=== PATIENT | male | born 1950 | race Caucasian/White ===

== ENCOUNTER 2017-10-18 08:58 | Inpatient (IN) | payer OTHER, MEDICARE ==
--- NOTE | 2017-10-18 09:26 | PDOC ---
History of Present Illness - General History Source: Patient Exam Limitations: No Limitations <Sandrine Sorto - Last Filed: 10/18/17 11:48> - History of Present Illness Initial Comments: 10/18/17 09:38 The patient is a 67 year old male with history of hypertension, CAD s/p stent, renal colic s/p lithotripsy, who presents to the ED complaining of several days of right flank pain. He describes his right flank pain as sharp, waxing and waning, and now migrating to the RLQ. He also describes nausea with nonbloody nonbilious vomiting yesterday. He has been taking Ibuprofen with moderate relief. Last took Ibuprofen 6:00 AM today. The patient denies fever or chills. He denies hematuria or dysuria. He denies constipation or diarrhea. He denies trauma or heavy lifting. Patient states his current pain is 2/10 and declines pain medication at this time. PCP: Dr. Lara Urologist: Dr. Franki Lamb <Massiel Mancuso - Last Filed: 10/18/17 11:55> - General Chief Complaint: Pain, Acute Stated Complaint: BACK PAIN (KIDNEY) Time Seen by Provider: 10/18/17 09:25 Past History - Past Medical History Cardiac Disorders: Yes COPD: No Diabetes: Yes Disorders: (KIDNEY STONES.) HTN: Yes - Surgical History Cardiac Surgery: Yes (STENT: 2014) - Suicide/Smoking/Psychosocial Hx Smoking History: Never smoked Hx Alcohol Use: No Drug/Substance Use Hx: No Substance Use Type: None <Sandrine Sorto - Last Filed: 10/18/17 11:48> <Massiel Mancuso - Last Filed: 10/18/17 11:55> - Past Medical History Allergies/Adverse Reactions: Allergies Allergy/AdvReac Type Severity Reaction Status Date / Time No Known Allergies Allergy Verified 10/18/17 09:07 Home Medications: Ambulatory Orders Amlodipine Besylate [Norvasc -] 5 mg PO DAILY 10/18/17 Carvedilol [Coreg -] 25 mg PO BID 10/18/17 Clopidogrel Bisulfate [Plavix] 75 mg PO DAILY 10/18/17 Glyburide [Diabeta -] 2 mg PO DAILY 10/18/17 Losartan/Hydrochlorothiazide [Losartan-Hctz 100-12.5 mg Tab] 1 each PO DAILY Metformin HCl [Glucophage] 1,000 mg PO BID 10/18/17 Review of Systems - Review of Systems Able to Perform ROS?: Yes Comments:: 10/18/17 09:57 GENERAL/CONSTITUTIONAL: No: fever, chills, weakness, loss of appetite. HEAD, EYES, EARS, NOSE AND THROAT: No: change in vision, ear pain, discharge, sore throat, throat swelling. CARDIOVASCULAR: No: chest pain, lightheadedness, palpitations, syncope RESPIRATORY: No: cough, shortness of breath, wheezing, hemoptysis, stridor. GASTROINTESTINAL: Present: nausea, NBNB vomiting No: abdominal cramping, diarrhea, rectal bleeding, constipation. GENITOURINARY: Present: right flank pain No: dysuria, hematuria, frequency, urgency MUSCULOSKELETAL: No: back pain, neck pain, joint pain, muscle swelling or pain SKIN AND BREASTS: No: lesions, pallor, rash or easy bruising. NEUROLOGIC: No: headache, vertigo, paresthesias, weakness ENDOCRINE: No: unexplained weight gain or loss HEMATOLOGIC/LYMPHATIC: No: anemia, easy bleeding, swelling nodes <Massiel Mancuso - Last Filed: 10/18/17 11:55> *Physical Exam - Vital Signs Last Vital Signs Temp Pulse Resp BP Pulse Ox 97.7 F 89 18 130/74 99 10/18/17 09:05 10/18/17 09:05 10/18/17 09:05 10/18/17 09:05 10/18/17 09:05 <Sandrine Sorto - Last Filed: 10/18/17 11:48> - Vital Signs Last Vital Signs Temp Pulse Resp BP Pulse Ox 97.7 F 89 18 130/74 99 10/18/17 09:05 10/18/17 09:05 10/18/17 09:05 10/18/17 09:05 10/18/17 09:05 - Physical Exam Comments: 10/18/17 10:00 GENERAL: The patient is in no acute distress. HEAD: Normal with no signs of trauma. EYES: PERRLA, EOMI, sclera anicteric, conjunctiva clear. ENT: Ears normal, nares patent, oropharynx clear without exudates. Moist mucous membranes. NECK: Normal range of motion, supple without lymphadenopathy, JVD, or masses. LUNGS: Breath sounds equal, clear to auscultation bilaterally. No wheezes, and no crackles. HEART:Regular rate and rhythm, normal S1 and S2 without murmur, rub or gallop. ABDOMEN: Soft, nontender, normoactive bowel sounds. No guarding, no rebound. EXTREMITIES: Normal range of motion, no edema. No clubbing or cyanosis. No erythema, or tenderness. NEUROLOGICAL: Cranial nerves II through XII grossly intact. Normal speech. No focal neurological deficits. MUSCULOSKELETAL: Back non-tender to palpation, no CVA tenderness SKIN: Warm, Dry, normal turgor, no rashes or lesions noted. <Massiel Mancuso - Last Filed: 10/18/17 11:55> ED Treatment Course - LABORATORY CBC & Chemistry Diagram: 10/18/17 09:46 10/18/17 09:46 <Sandrine Sorto - Last Filed: 10/18/17 11:48> - LABORATORY CBC & Chemistry Diagram: 10/18/17 09:46 10/18/17 09:46 <Massiel Mancuso - Last Filed: 10/18/17 11:55> Medical Decision Making - Medical Decision Making 10/18/17 11:29 Mr. Dacosta is a 67-year-old male with a history of diabetes, hypertension, history of prior kidney stone requiring lithotripsy. Patient presents emergency department with a complaint of right flank pain which has not improved over the past few days. No fevers, chills. No hematuria, no dysuria. Patient denies heavy lifting, falls, direct trauma. Emergency diagnosis includes but is not limited to: Nephrolithiasis, pyelonephritis, musculoskeletal pain, renal infarct. Will do: Labs UA Spiral CT Patient states his pain is minimal now after having taking Motrin at home. 10/18/17 11:31 Laboratory Tests 10/18/17 10/18/17 10/18/17 09:46 09:46 09:46 WBC 9.5 Hgb 13.7 Hct 38.5 Plt Count 179 Sodium 136 Potassium 4.1 Chloride 100 Carbon Dioxide 23 Anion Gap 13 Creatinine 1.5 H Random Glucose 293 H Urine Blood 2+ H Urine Nitrite Negative Ur Leukocyte Esterase Negative CT of the abdomen and pelvis: Possibly 0.8 x 0.6 cm calculus within the right UPJ with mild right hydronephrosis, and distention of the renal pelvis. Associated left. Renal fat stranding and edema. No hydroureter. 10/18/17 11:[address] Lamb Recommends admission Will do lithotrypsy tomorrow Will contact Hospitalists Clinical Impression: Obstructing kidney stone, initial presentation <Sandrine Sorto - Last Filed: 10/18/17 11:48> - Medical Decision Making 10/18/17 11:[address], reviewed and interpreted by Dr. Barron Impression: Approximately 0.8 x 0.6 cm calculus within the right uteropelvic junction with mild right hydronephrosis and distention of the renal pelvis. 4 mm nonobstructing right nephrolithiasis. 2. Circumferentially prominent urinary bladder wall may be due to underdistention, however, cystitis is not excluded. Please correlate clinically , with urinalysis. 3. Hepatic steatosis. 10/18/17 11:48 Case discussed with patient's urologist, Dr. rFanki Lamb, who requested admission. <Massiel Mancuso - Last Filed: 10/18/17 11:55> *DC/Admit/Observation/Transfer - Discharge Dispostion Admit: Yes <Sandrine Sorto - Last Filed: 10/18/17 11:48> - Attestations Scribe Attestion: 10/18/17 10:00 Documentation prepared by Massiel Mancuso, acting as medical staff manager for Sandrine Sorto MD. <Massiel Mancuso - Last Filed: 10/18/17 11:55> Diagnosis at time of Disposition: Urinary tract obstruction by kidney stone - Discharge Dispostion Condition at time of disposition: Stable
[2017-10-18] MEDS ORDERED: SODIUM CHLORIDE 1,000 ML IV STA (09:35)
[2017-10-18 10:12] LABS: BASO % 0.3 % (0-2.0); EOS % 0.8 % (0-4.5); HEMATOCRIT 38.5 % (35.4-49); HEMOGLOBIN 13.7 GM/dL (11.7-16.9); LYMPH % 13.9 % (8-40); MCHC 35.6 g/dl (32.0-35.9); MEAN CELL VOLUME 87.1 fl (80-96); MEAN PLT VOLUME 7.5 fl (7.5-11.1); MONO % 8.7 % (3.8-10.2); NEUT % 76.3 % (42.8-82.8); PLATELET COUNT 179 K/MM3 (134-434); RBC 4.42 M/mm3 (4.00-5.60); RDW 13.6 % (11.9-15.9); WHITE BLOOD COUNT 9.5 K/mm3 (4.0-10.0)
[2017-10-18 10:22] LABS: URINE APPEARANCE CLOUDY; URINE BILIRUBIN NEGATIVE (NEGATIVE); URINE BLOOD 2+ (NEGATIVE); URINE COLOR YELLOW; URINE GLUCOSE (UA) 2+ (NEGATIVE); URINE KETONE TRACE (NEGATIVE); URINE LEUK ESTERASE NEGATIVE (NEGATIVE); URINE NITRITE NEGATIVE (NEGATIVE); URINE UROBILINOGEN NEGATIVE mg/dL (0.2-1.0)
[2017-10-18 10:29] LABS: URINE PROTEIN 3+ (NEGATIVE)
[2017-10-18 10:43] LABS: ALBUMIN 3.4 g/dl (3.4-5.0); ALK PHOS 57 U/L (45-117); ANION GAP 13 (8-16); BILIRUBIN,TOTAL 1.3 mg/dL (0.2-1.0); BLOOD UREA NITROGEN 28 mg/dL (7-18); CALCIUM 8.7 mg/dL (8.5-10.1); CHLORIDE 100 mmol/L (98-107); CO2 23 mmol/L (21-32); CREATININE 1.5 mg/dL (0.7-1.3); GLUCOSE,RANDOM 293 mg/dL (74-106); POTASSIUM 4.1 mmol/L (3.5-5.1); SGOT/AST 16 U/L (15-37); SGPT/ALT 16 U/L (12-78); SODIUM 136 mmol/L (136-145); TOT PROT 6.4 g/dl (6.4-8.2)
[2017-10-18 11:28] LABS: EPI CELLS RARE /HPF (FEW); URIC ACID CRYSTALS MANY /hpf (NONE SEEN); URINE MUCUS RARE
--- NOTE | 2017-10-18 12:07 | HP ---
CHIEF COMPLAINT: "I have a kidney stone" PCP: Dr. Lara Urologist: Dr. Franki Lamb HISTORY OF PRESENT ILLNESS: This is a 67 yo M with PMH of L nephrolithiasis s/p lithotripsy 5 yrs ago, CAD s /p stent 4 yrs ago, HTN and NIDDM, who presents due to worsening right flank pain x several weeks. Pain is currently resolves but otherwise it comes and goes , is sharp and radiating to RLQ, 3/10 most severe. Pain is relieved by Ibuprofen (took 2-400 mg yesterday and one today with symptomatic relief). Last night he experienced 1 episode of nbnb vomiting. He denies history of elevated createnine or bilirubin. A1c 8 mo ago was 6. His last TTE and stress test were 2 yrs ago and were WNL. He denies f/c, abd pain, nausea, dysuria, hematuria, prior UTI, weight change, CP, sob, trauma. ER course was notable for: (1)labs (2)abd/pelvis CT (3)IVF Recent Travel: denies PAST MEDICAL HISTORY: as above PAST SURGICAL HISTORY: as above Social History: lives with Smoking: denies Alcohol:denies Drugs: denies Family History: no history of nephrolithiasis. father [place] at 65 yo Allergies No Known Allergies Allergy (Verified 10/18/17 09:07) HOME MEDICATIONS: Home Medications Medication Instructions Recorded Amlodipine Besylate [Norvasc -] 5 mg PO DAILY 10/18/17 Carvedilol [Coreg -] 25 mg PO BID 10/18/17 Clopidogrel Bisulfate [Plavix] 75 mg PO DAILY 10/18/17 Glyburide [Diabeta -] 2 mg PO DAILY 10/18/17 Losartan/Hydrochlorothiazide 1 each PO DAILY 10/18/17 [Losartan-Hctz 100-12.5 mg Tab] Metformin HCl [Glucophage] 1,000 mg PO BID 10/18/17 REVIEW OF SYSTEMS CONSTITUTIONAL: Absent: fever, chills, diaphoresis, generalized weakness, malaise, loss of appetite, weight change HEENT: Absent: rhinorrhea, nasal congestion, throat pain, CARDIOVASCULAR: Absent: chest pain, syncope, palpitations RESPIRATORY: Absent: cough, shortness of breath GASTROINTESTINAL: Absent: abdominal distension, diarrhea, constipation GENITOURINARY: Absent: dysuria, hematuria MUSCULOSKELETAL: Absent: myalgia, arthralgia SKIN: Absent: rash, itching, pallor HEMATOLOGIC/IMMUNOLOGIC: Absent: easy bleeding, easy bruising ENDOCRINE: Absent: unexplained weight gain, unexplained weight loss NEUROLOGIC: Absent: headache, focal weakness or paresthesias PSYCHIATRIC: Absent: anxiety, depression PHYSICAL EXAMINATION Vital Signs - 24 hr 10/18/17 09:05 Temperature 97.7 F Pulse Rate 89 Respiratory 18 Rate Blood Pressure 130/74 O2 Sat by Pulse 99 Oximetry (%) GENERAL: Awake, alert, and fully oriented, in no acute distress. HEAD: Normal with no signs of trauma. EYES: Pupils equal, round and reactive to light, extraocular movements intact, sclera anicteric, conjunctiva clear. No lid lag. EARS, NOSE, THROAT: Moist mucous membranes. NECK: supple without JVD LUNGS: Breath sounds equal, clear to auscultation bilaterally. HEART: distant heart sounds, Regular rate and rhythm, normal S1 and S2 ABDOMEN: obese, Soft, mildly tender to deep palpation ruq, mildly distended, normoactive bowel sounds, no guarding, no rebound, no masses. MUSCULOSKELETAL: No CVA tenderness. UPPER EXTREMITIES: 2+ pulses, warm, well-perfused. No cyanosis. No clubbing. No peripheral edema. LOWER EXTREMITIES: 2+ pulses, warm, well-perfused. No calf tenderness. No peripheral edema. NEUROLOGICAL: Cranial nerves II-XII grossly intact. Normal speech. PSYCHIATRIC: Cooperative. Good eye contact. Appropriate mood and affect. SKIN: Warm, dry Laboratory Results - last 24 hr 10/18/17 10/18/17 10/18/17 09:46 09:46 09:46 WBC 9.5 RBC 4.42 Hgb 13.7 Hct 38.5 MCV 87.1 MCH 31.0 MCHC 35.6 RDW 13.6 Plt Count 179 MPV 7.5 Neutrophils % 76.3 Lymphocytes % 13.9 Monocytes % 8.7 Eosinophils % 0.8 Basophils % 0.3 Sodium 136 Potassium 4.1 Chloride 100 Carbon Dioxide 23 Anion Gap 13 BUN 28 H Creatinine 1.5 H Creat Clearance w eGFR 46.82 Random Glucose 293 H Calcium 8.7 Total Bilirubin 1.3 H AST 16 ALT 16 Alkaline Phosphatase 57 Total Protein 6.4 Albumin 3.4 Urine Color Yellow Urine Appearance Cloudy Urine pH 5.0 Ur Specific [place] 1.018 Urine Protein 3+ H Urine Glucose (UA) 2+ H Urine Ketones Trace H Urine Blood 2+ H Urine Nitrite Negative Urine Bilirubin Negative Urine Urobilinogen Negative Ur Leukocyte Esterase Negative Urine WBC (Auto) 10 Urine RBC (Auto) 29 Ur Epithelial Cells Rare Uric Acid Crystals Many Urine Mucus Rare ASSESSMENT/PLAN: This is a 67 yo M with PMH of L nephrolithiasis s/p lithotripsy 5 yrs ago, CAD s /p stent 4 yrs ago, HTN and NIDDM, who presents due to worsening right flank pain x several weeks. R nephrolithiasis at ureteropelvic jucntion with mild hydronephrosis -6x8 mm stone -tylenol for pain prn -ppx rocephin -IVF -NPO after midnoght Dr Lamb for lithotripsy YOHANNES vs CKD -likely due to obstructive stone rather than secondary to DM or ibuprofen use -monitor s/p lithotripsy and ivf hydration NIDDM -hold po agents, GBM, ISS -A1c HTN CAD -resume home Coreg, norvasc, losartan, asa -hold HCTZ due to elevated creat. -hold plavix, restart dorian FEN NS @ 125 lytes stable diabetic low Na diet NPO after midnight SCD Dispo: Adm m/s Problem List - Problem (1) HTN (hypertension) Code(s): I10 - ESSENTIAL (PRIMARY) HYPERTENSION (2) CAD (coronary artery disease) Code(s): I25.10 - ATHSCL HEART DISEASE OF [place] CORONARY ARTERY W/O ANG PCTRS (3) Presence of stent in coronary artery in patient with coronary artery disease Code(s): I25.10 - ATHSCL HEART DISEASE OF [place] CORONARY ARTERY W/O ANG PCTRS; Z95.5 - PRESENCE OF CORONARY ANGIOPLASTY IMPLANT AND GRAFT (4) YOHANNES (acute kidney injury) Code(s): N17.9 - ACUTE KIDNEY FAILURE, UNSPECIFIED (5) Diabetes Code(s): E11.9 - TYPE 2 DIABETES MELLITUS WITHOUT COMPLICATIONS (6) Urinary tract obstruction by kidney stone Code(s): N20.0 - CALCULUS OF KIDNEY; N13.8 - OTHER OBSTRUCTIVE AND REFLUX UROPATHY Visit type - Emergency Visit Emergency Visit: Yes Care time: The patient presented to the Emergency Department on the above date and was hospitalized for further evaluation of their emergent condition. - New Patient This patient is new to me today: Yes Date on this admission: 10/18/17 - Critical Care Critical Care patient: No
[2017-10-18] MEDS ORDERED: ACETAMINOPHEN 325 MG TABLET (FP) PO PRN (12:08)
[2017-10-18] MEDS ORDERED: KETOROLAC TROMETHAMINE 30 MG/1 ML VIAL IVPUSH PRN (12:08)
[2017-10-18] MEDS ORDERED: cefTRIAXone 2 GM/100 ML BAG (PRE-DOCKED) IVPB SCH (12:45)
[2017-10-18] MEDS ORDERED: CEFTRIAXONE 2 GM/100 ML BAG IVPB ONE (12:57)
--- NOTE | 2017-10-18 13:10 | HP ---
<Nomi Lovell - Last Filed: 10/18/17 16:37> CHIEF COMPLAINT: right flank pain PCP: Dr. Martin Cardiology: Dr. Tawanda Miles HISTORY OF PRESENT ILLNESS: 67 y.o. M with pmh of htn, dm, left nephrolithiasis x 8 yrs prior s/p lithotripsy, and cad s/p stent placement 4 years ago presented with right flank pain. Pain began 2 weeks ago. Pain is intermittent, 1-2/10, radiating to the rlq. Yesterday the pain was 8/10. Patient took 2 ibuprofen yesterday and 1 today and came to the ER. Patient also had 1 episode of nb/nb emesis yesterday. Patient denies fever, chills, chest pain, sob, dysuria, hematuria. Patient states he believes his kidney function has been normal. ER course was notable for: (1) vs unremarkable (2) labs unremarkable (3) 6x[address] abd/pelvis Recent Travel: denies PAST MEDICAL HISTORY: as per hpi PAST SURGICAL HISTORY: Cath 4 yrs ago, lithotripsy 8 years ago Social History: Smoking: denies Alcohol: denies Drugs: denies Family History: no fhx of nephrolithiasis Allergies No Known Allergies Allergy (Verified 10/18/17 09:07) HOME MEDICATIONS: Home Medications Medication Instructions Recorded Amlodipine Besylate [Norvasc -] 5 mg PO DAILY 10/18/17 Carvedilol [Coreg -] 25 mg PO BID 10/18/17 Clopidogrel Bisulfate [Plavix] 75 mg PO DAILY 10/18/17 Glyburide [Diabeta -] 2 mg PO DAILY 10/18/17 Losartan/Hydrochlorothiazide 1 each PO DAILY 10/18/17 [Losartan-Hctz 100-12.5 mg Tab] Metformin HCl [Glucophage] 1,000 mg PO BID 10/18/17 Pravastatin Sodium 20 mg PO HS 10/18/17 REVIEW OF SYSTEMS CONSTITUTIONAL: Absent: fever, chills, diaphoresis, generalized weakness, malaise, loss of appetite, weight change HEENT: Absent: rhinorrhea, nasal congestion, throat pain, throat swelling, difficulty swallowing, mouth swelling, ear pain, eye pain, visual changes CARDIOVASCULAR: Absent: chest pain, syncope, palpitations, irregular heart rate, lightheadedness , peripheral edema RESPIRATORY: Absent: cough, shortness of breath, dyspnea with exertion, orthopnea, wheezing, stridor, hemoptysis GASTROINTESTINAL: Absent: abdominal pain, abdominal distension, nausea, vomiting, diarrhea, constipation, melena, hematochezia GENITOURINARY: Absent: dysuria, frequency, urgency, hesitancy, hematuria, flank pain, genital pain MUSCULOSKELETAL: Absent: myalgia, arthralgia, joint swelling, back pain, neck pain SKIN: Absent: rash, itching, pallor HEMATOLOGIC/IMMUNOLOGIC: Absent: easy bleeding, easy bruising, lymphadenopathy, frequent infections ENDOCRINE: Absent: unexplained weight gain, unexplained weight loss, heat intolerance, cold intolerance NEUROLOGIC: Absent: headache, focal weakness or paresthesias, dizziness, unsteady gait, seizure, mental status changes, bladder or bowel incontinence PSYCHIATRIC: Absent: anxiety, depression, suicidal or homicidal ideation, hallucinations. PHYSICAL EXAMINATION Vital Signs - 24 hr 10/18/17 09:05 Temperature 97.7 F Pulse Rate 89 Respiratory 18 Rate Blood Pressure 130/74 O2 Sat by Pulse 99 Oximetry (%) GENERAL: Awake, alert, and fully oriented, in no acute distress. HEAD: Normal with no signs of trauma. EYES: Extraocular movements intact, sclera anicteric, conjunctiva clear. No lid lag. EARS, NOSE, THROAT: Oropharynx clear without exudates. Moist mucous membranes. NECK: Normal range of motion, supple without lymphadenopathy, JVD, or masses. LUNGS: Breath sounds equal, clear to auscultation bilaterally. No wheezes, and no crackles. No accessory muscle use. HEART: Regular rate and rhythm, normal S1 and S2 without murmur, rub or gallop. ABDOMEN: Soft, obese nontender, not distended, normoactive bowel sounds, no guarding, no rebound, no masses. No hepatomegaly or splenomegaly. MUSCULOSKELETAL: Normal range of motion at all joints. No bony deformities or tenderness. No CVA tenderness. UPPER EXTREMITIES: 2+ pulses, warm, well-perfused. No cyanosis. No clubbing. No peripheral edema. LOWER EXTREMITIES: 2+ pulses, warm, well-perfused. No calf tenderness. No peripheral edema. NEUROLOGICAL: Cranial nerves II-XII intact. Normal speech. Normal gait. PSYCHIATRIC: Cooperative. Good eye contact. Appropriate mood and affect. SKIN: Warm, dry, normal turgor, no rashes or lesions noted, normal capillary refill. Laboratory Results - last 24 hr 10/18/17 10/18/17 10/18/17 09:46 09:46 09:46 WBC 9.5 RBC 4.42 Hgb 13.7 Hct 38.5 MCV 87.1 MCH 31.0 MCHC 35.6 RDW 13.6 Plt Count 179 MPV 7.5 Neutrophils % 76.3 Lymphocytes % 13.9 Monocytes % 8.7 Eosinophils % 0.8 Basophils % 0.3 Sodium 136 Potassium 4.1 Chloride 100 Carbon Dioxide 23 Anion Gap 13 BUN 28 H Creatinine 1.5 H Creat Clearance w eGFR 46.82 Random Glucose 293 H Calcium 8.7 Total Bilirubin 1.3 H AST 16 ALT 16 Alkaline Phosphatase 57 Total Protein 6.4 Albumin 3.4 Urine Color Yellow Urine Appearance Cloudy Urine pH 5.0 Ur Specific [place] 1.018 Urine Protein 3+ H Urine Glucose (UA) 2+ H Urine Ketones Trace H Urine Blood 2+ H Urine Nitrite Negative Urine Bilirubin Negative Urine Urobilinogen Negative Ur Leukocyte Esterase Negative Urine WBC (Auto) 10 Urine RBC (Auto) 29 Ur Epithelial Cells Rare Uric Acid Crystals Many Urine Mucus Rare ASSESSMENT/PLAN: 67 year old M with pmh of nephrolithasis s/p lithotripsy 8 years ago, htn, dm, and cad s/p cath 4 years ago presented with right flank pain x weeks and found to have upj nephrolithiasis #Right nephrolithiasis at UPJ, mild hydronephrosis -Urology on board, Dr. Lamb -received rocephin in ER -pain control with tylenol 650 q4h prn -IVF @ 75 cc/hr -NPO after midnight -CXR #YOHANNES, ? CKD, possibly 2/2 to obstruction vs dehydration -Continue IVF @ 75 cc/hr -Avoid nephrotoxic medications -Monitor cr, urine output #DM, type 2 -Hold home medications -bgm achs -iss achs #HTN/CAD s/p cath -Hold plavix and HCTZ for procedure -Continue coreg, norvasc, losartan -Continue aspirin after procedure #FEN/GI -IVF @ 75 cc/hr NS -monitor bmp -Sodium/Diabetic diet, npo after midnight for procedure #PPx -Scds Dispo: Admit to med surg Visit type - Emergency Visit Emergency Visit: Yes ED Registration Date: 10/18/17 Care time: The patient presented to the Emergency Department on the above date and was hospitalized for further evaluation of their emergent condition. - New Patient This patient is new to me today: Yes Date on this admission: 10/18/17 - Critical Care Critical Care patient: No Hospitalist Screening - Colonoscopy Questionnaire Colonoscopy Questionnaire: Colonoscopy Questionnaire - Patient: 50 - 75 years old and never had a screening colonoscopy: Unknown History of colon or rectal polyps, or CA: Unknown History of IBD, Crohn's disease or UC: Unknown History of abdominal radiation therapy as a child: Unknown - Relative: 1 with colon or rectal CA, or polyps at age 60 or younger: Unknown Colon or rectal CA diagnosed at age 45 or younger: Unknown Multiple relatives with colon or rectal CA: Unknown - Outcome: Screening Result: Negative Screen <Romario Abad - Last Filed: 10/18/17 20:12> Patient is seen and examined. Presented to ED. Since having right sided groin pain which he had similar pain before due to having Kidney stone. CT of abdomen and Pelvis was done which was positive for 4mm kidney stone in the right kidney. Urology consulted, IVF, pain control, straine urine for kidney stones. Hospitalist Screening - Colonoscopy Questionnaire Colonoscopy Questionnaire: Colonoscopy Questionnaire
[2017-10-18 13:12] VITALS: BMI 37.4
[2017-10-18] MEDS ORDERED: SODIUM CHLORIDE 1,000 ML IV SCH ×2 (14:15→16:36)
[2017-10-18] MEDS ORDERED: PROMETHAZINE HCL 25 MG/1 ML VIAL IVPUSH ONE (16:50)
[2017-10-18] MEDS: morphine SULFATE 4 MG/ML VIAL IVPUSH ONE (17:04)
[2017-10-18] MEDS: INSULIN SLIDING SCALE (NOVOLOG) 1 VIAL SQ SCH ×2 (17:17→21:29)
[2017-10-18] MEDS: ATORVASTATIN CA 10 MG TABLET (FP) PO SCH (21:29)
[2017-10-18] MEDS: CARVEDILOL 25 MG TABLET (FP) PO SCH (21:29)
[2017-10-19] MEDS ORDERED: morphine SULFATE 4 MG/ML VIAL IVPUSH ONE ×2 (04:40→19:00)
[2017-10-19] MEDS: INSULIN SLIDING SCALE (NOVOLOG) 1 VIAL SQ SCH ×4 (06:19→21:42)
[2017-10-19 08:16] LABS: BASO % 0.2 % (0-2.0); EOS % 0.5 % (0-4.5); HEMATOCRIT 39.4 % (35.4-49); HEMOGLOBIN 13.6 GM/dL (11.7-16.9); LYMPH % 16.4 % (8-40); MCH 30.6 pg (25.7-33.7); MCHC 34.6 g/dl (32.0-35.9); MEAN CELL VOLUME 88.5 fl (80-96); MEAN PLT VOLUME 7.5 fl (7.5-11.1); MONO % 8.8 % (3.8-10.2); NEUT % 74.1 % (42.8-82.8); PLATELET COUNT 185 K/MM3 (134-434); RBC 4.46 M/mm3 (4.00-5.60); RDW 13.7 % (11.9-15.9); WHITE BLOOD COUNT 8.6 K/mm3 (4.0-10.0)
[2017-10-19 08:23] LABS: INR 1.03 (0.82-1.09); PROTHROMBIN TIME (PATIENT) 11.6 SEC (9.98-11.88)
[2017-10-19 08:26] LABS: ACTIVATED PTT 27.9 SECONDS (26.9-34.4)
[2017-10-19 08:42] LABS: ANION GAP 12 (8-16); BLOOD UREA NITROGEN 22 mg/dL (7-18); CALCIUM 8.4 mg/dL (8.5-10.1); CHLORIDE 106 mmol/L (98-107); CO2 24 mmol/L (21-32); CREATININE 1.1 mg/dL (0.7-1.3); GLUCOSE,RANDOM 197 mg/dL (74-106); POTASSIUM 4.1 mmol/L (3.5-5.1); SODIUM 142 mmol/L (136-145)
[2017-10-19] MEDS: amLODIPine BESYLATE 5 MG TABLET (FP) PO SCH (09:30)
[2017-10-19] MEDS: CARVEDILOL 25 MG TABLET (FP) PO SCH ×2 (09:30→21:42)
[2017-10-19] MEDS: CEFTRIAXONE 2 GM/50 ML IVPB SCH (09:31)
[2017-10-19] MEDS: LOSARTAN POTASSIUM 50 MG TABLET (FP) PO SCH (09:31)
[2017-10-19 11:22] LABS: URIC ACID 5.4 mg/dL (2.6-7.2)
[2017-10-19] MEDS: ALLOPURINOL 100 MG TABLET (FP) PO SCH (11:41)
[2017-10-19] MEDS ORDERED: morphine CARPU-JECT 2 MG/1 ML DISP.SYRIN IVPUSH PRN (12:05)
--- NOTE | 2017-10-19 12:10 | PN ---
<Nomi Lovell - Last Filed: 10/19/17 18:21> Physical Exam: SUBJECTIVE: Patient seen and examined No acute events overnight. Patient's pain is intermittent. Patient denies fever , chills, chest pain, sob, dysuria, heamturia OBJECTIVE: Vital Signs Period Temp Pulse Resp BP Sys/Monreal Pulse Ox Last 24 Hr 98 F-99.0 F 62-72 18-20 123-161/70-94 96-97 GENERAL: Patient is A&Ox3, in NAD HEAD: Normal with no signs of trauma. EYES: Pupils equal, round and reactive to light, Extraocular movements intact, sclera anicteric, conjunctiva clear. No lid lag. EARS, NOSE, THROAT: Moist mucous membranes. NECK: supple without JVD LUNGS: Breath sounds equal, clear to auscultation bilaterally. No wheezes, crackles, rales heard HEART: Regular rate and rhythm, normal S1 and S2, No murmurs, rubs, or gallops ABDOMEN: obese, Soft, nontender, no distention, normoactive bowel sounds, no guarding, no rebound, no masses. MUSCULOSKELETAL: No CVA tenderness. UPPER EXTREMITIES: 2+ pulses, warm, well-perfused. No cyanosis. No clubbing. No peripheral edema. LOWER EXTREMITIES: 2+ pulses, warm, well-perfused. No calf tenderness. No peripheral edema. NEUROLOGICAL: Cranial nerves II-XII grossly intact. Normal speech. PSYCHIATRIC: Cooperative. Good eye contact. Appropriate mood and affect. SKIN: Warm, dry Laboratory Results - last 24 hr 10/18/17 10/18/17 10/19/17 17:10 21:28 06:17 WBC RBC Hgb Hct MCV MCH MCHC RDW Plt Count MPV Neutrophils % Lymphocytes % Monocytes % Eosinophils % Basophils % PT with INR INR PTT (Actin FS) Sodium Potassium Chloride Carbon Dioxide Anion Gap BUN Creatinine POC Glucometer 202 159 209 Random Glucose Uric Acid Calcium 10/19/17 10/19/17 10/19/17 07:04 07:04 07:05 WBC 8.6 RBC 4.46 Hgb 13.6 Hct 39.4 MCV 88.5 MCH 30.6 MCHC 34.6 RDW 13.7 Plt Count 185 MPV 7.5 Neutrophils % 74.1 Lymphocytes % 16.4 Monocytes % 8.8 Eosinophils % 0.5 Basophils % 0.2 PT with INR 11.60 INR 1.03 PTT (Actin FS) 27.9 Sodium 142 Potassium 4.1 Chloride 106 Carbon Dioxide 24 Anion Gap 12 BUN 22 H D Creatinine 1.1 D POC Glucometer Random Glucose 197 H D Uric Acid 5.4 Calcium 8.4 L 10/19/17 10/19/17 07:05 11:21 WBC RBC Hgb Hct MCV MCH MCHC RDW Plt Count MPV Neutrophils % Lymphocytes % Monocytes % Eosinophils % Basophils % PT with INR INR PTT (Actin FS) Sodium Potassium Chloride Carbon Dioxide Anion Gap BUN Creatinine POC Glucometer 198 Random Glucose Uric Acid Cancelled Calcium Active Medications Generic Name Dose Route Start Last Admin Trade Name Freq PRN Reason Stop Dose Admin Acetaminophen 650 mg 10/18/17 12:08 10/18/17 14:05 Tylenol - PO 650 mg Q4H PRN Administration PAIN LEVEL 1-5 Allopurinol 100 mg 10/19/17 10:00 10/19/17 11:41 Zyloprim - PO Not Given DAILY MARC Amlodipine Besylate 5 mg 10/19/17 10:00 10/19/17 09:30 Norvasc - PO 5 mg DAILY MARC Administration Aspirin 81 mg 10/20/17 10:00 Ecotrin - PO DAILY MARC Atorvastatin Calcium 10 mg 10/18/17 22:00 10/18/17 21:29 Lipitor - PO 10 mg HS MARC Administration Carvedilol 25 mg 10/18/17 22:00 10/19/17 09:30 Coreg - PO 25 mg BID MARC Administration Insulin Aspart 1 vial 10/18/17 16:30 10/19/17 11:40 Novolog Vial Sliding Scale - SQ Not Given ACHS [facility] Protocol Losartan Potassium 100 mg 10/19/17 10:00 10/19/17 09:31 Cozaar - PO 100 mg DAILY MARC Administration Morphine Sulfate 1 mg 10/19/17 12:05 Morphine Injection - IVPUSH Q4H PRN PAIN LEVEL 6-10 ASSESSMENT/PLAN: 67 year old M with pmh of nephrolithasis s/p lithotripsy 8 years ago, htn, dm, and cad s/p cath 4 years ago presented with right flank pain x weeks and found to have [facility] nephrolithiasis #Right nephrolithiasis at [facility], mild hydronephrosis -Urology on board, Dr. Lamb -Per Dr. Lamb, procedure will be done tomorrow -Pain control with tylenol 650 q4h prn and morphine 1 mg q 4h prn -NPO after midnight -Ceftriaxone 2 g daily -Pre-op clearance with 12 lead EKG -Cardiology consulted, Dr. Levin #YOHANNES, resolving -Hold IVF -Avoid nephrotoxic medications -Monitor cr, urine output #DM, type 2 -Hold home medications -bgm achs -iss achs #HTN/CAD s/p cath -Hold Plavix and HCTZ for procedure -Continue coreg, norvasc, losartan -Continue aspirin after procedure #FEN/GI -No IVF -monitor bmp -Sodium/Diabetic diet, npo after midnight for procedure #PPx -Scds Dispo: Procedure scheduled for tomorrow. Visit type - Emergency Visit Emergency Visit: Yes ED Registration Date: 10/18/17 Care time: The patient presented to the Emergency Department on the above date and was hospitalized for further evaluation of their emergent condition. - New Patient This patient is new to me today: No - Critical Care Critical Care patient: No <Romario Abad - Last Filed: 10/19/17 19:22> Physical Exam: Patient seen and examined , patient is comfortable going to OR with in am. NPO after midnight. Added Allopurinol to his regimen since patient was found to have Uric acid crystals in the urine. Will hold Hctz since elevates UA level, will check his Uric acid level. Vital Signs Temperature 98.1 F 10/19/17 14:00 Pulse Rate 70 10/19/17 09:00 Respiratory Rate 18 10/19/17 09:00 Blood Pressure 143/70 10/19/17 09:00 O2 Sat by Pulse Oximetry (%) 97 10/18/17 20:47 CBCD WBC 8.6 K/mm3 (4.0-10.0) 10/19/17 07:04 RBC 4.46 M/mm3 (4.00-5.60) 10/19/17 07:04 Hgb 13.6 GM/dL (11.7-16.9) 10/19/17 07:04 Hct 39.4 % (35.4-49) 10/19/17 07:04 MCV 88.5 fl (80-96) 10/19/17 07:04 MCHC 34.6 g/dl (32.0-35.9) 10/19/17 07:04 RDW 13.7 % (11.9-15.9) 10/19/17 07:04 Plt Count 185 K/MM3 (134-434) 10/19/17 07:04 MPV 7.5 fl (7.5-11.1) 10/19/17 07:04 CMP Sodium 142 mmol/L (136-145) 10/19/17 07:05 Potassium 4.1 mmol/L (3.5-5.1) 10/19/17 07:05 Chloride 106 mmol/L (98-107) 10/19/17 07:05 Carbon Dioxide 24 mmol/L (21-32) 10/19/17 07:05 Anion Gap 12 (8-16) 10/19/17 07:05 BUN 22 mg/dL (7-18) H D 10/19/17 07:05 Creatinine 1.1 mg/dL (0.7-1.3) D 10/19/17 07:05 Creat Clearance w eGFR 46.82 (>60) 10/18/17 09:46 Random Glucose 197 mg/dL (74-106) H D 10/19/17 07:05 Calcium 8.4 mg/dL (8.5-10.1) L 10/19/17 07:05 Total Bilirubin 1.3 mg/dL (0.2-1.0) H 10/18/17 09:46 AST 16 U/L (15-37) 10/18/17 09:46 ALT 16 U/L (12-78) 10/18/17 09:46 Alkaline Phosphatase 57 U/L (45-117) 10/18/17 09:46 Total Protein 6.4 g/dl (6.4-8.2) 10/18/17 09:46 Albumin 3.4 g/dl (3.4-5.0) 10/18/17 09:46 Urine Test Results Urine Color Yellow 10/18/17 09:46 Urine Appearance Cloudy 10/18/17 09:46 Urine pH 5.0 (5.0-8.0) 10/18/17 09:46 Ur Specific [place] 1.018 (1.001-1.035) 03/14/18 09:46 Urine Protein 3+ (NEGATIVE) H 10/18/17 09:46 Urine Glucose (UA) 2+ (NEGATIVE) H 10/18/17 09:46 Urine Ketones Trace (NEGATIVE) H 10/18/17 09:46 Urine Blood 2+ (NEGATIVE) H 10/18/17 09:46 Urine Nitrite Negative (NEGATIVE) 10/18/17 09:46 Urine Bilirubin Negative (NEGATIVE) 10/18/17 09:46 Ur Leukocyte Esterase Negative (NEGATIVE) 10/18/17 09:46 Ur Epithelial Cells Rare /HPF (FEW) 10/18/17 09:46 Urine Mucus Rare 10/18/17 09:46 Current Medications Generic Name Dose Route Start Last Admin Trade Name Freq PRN Reason Stop Dose Admin Acetaminophen 650 mg 10/18/17 12:08 10/18/17 14:05 Tylenol - PO 650 mg Q4H PRN Administration PAIN LEVEL 1-5 Allopurinol 100 mg 10/19/17 10:00 10/19/17 11:41 Zyloprim - PO Not Given DAILY MARC Amlodipine Besylate 5 mg 10/19/17 10:00 10/19/17 09:30 Norvasc - PO 5 mg DAILY MARC Administration Aspirin 81 mg 10/20/17 22:00 Ecotrin - PO DAILY MARC Atorvastatin Calcium 10 mg 10/18/17 22:00 10/18/17 21:29 Lipitor - PO 10 mg HS MARC Administration Carvedilol 25 mg 10/18/17 22:00 10/19/17 09:30 Coreg - PO 25 mg BID MARC Administration Insulin Aspart 1 vial 10/18/17 16:30 10/19/17 17:16 Novolog Vial Sliding Scale - SQ 6 units ACHS MARC Administration Protocol Losartan Potassium 100 mg 10/19/17 10:00 10/19/17 09:31 Cozaar - PO 100 mg DAILY MARC Administration Morphine Sulfate 2 mg 10/19/17 18:03 10/19/17 18:50 Morphine Sulfate IVPUSH 2 mg Q4H PRN Administration PAIN LEVEL 6-10 Home Medications Medication Instructions Recorded Amlodipine Besylate [Norvasc -] 5 mg PO DAILY 10/18/17 Carvedilol [Coreg -] 25 mg PO BID 10/18/17 Clopidogrel Bisulfate [Plavix] 75 mg PO DAILY 10/18/17 Glyburide [Diabeta -] 2 mg PO DAILY 10/18/17 Losartan/Hydrochlorothiazide 1 each PO DAILY 10/18/17 [Losartan-Hctz 100-12.5 mg Tab] Metformin HCl [Glucophage] 1,000 mg PO BID 10/18/17 Pravastatin Sodium 20 mg PO HS 10/18/17
[2017-10-19] MEDS ORDERED: morphine SULFATE 4 MG/ML VIAL ONE (14:52)
[2017-10-19] MEDS: morphine SULFATE 4 MG/ML VIAL IVPUSH ONE (15:08)
[2017-10-19] MEDS ORDERED: morphine CARPU-JECT 4 MG/1 ML DISP.SYRIN IVPUSH PRN (15:20)
--- NOTE | 2017-10-19 15:42 | CON.CARD ---
Cardiology Consult (text) - Consultation Consultation Note: CC: pre-op clearance 67 year old male with history of hypertension, hl, CAD s/p stent 2013, niddm, sarah on cpap, kidney stones s/p lithotripsy, remote h/o TIA 10 yrs ago ( transient right sided weakness) who p/w right flank pain found to have kidney stones requiring intervention. He describes his right flank pain as sharp, waxing and waning, and now migrating to the RLQ. He also describes nausea with nonbloody nonbilious vomiting yesterday. Still with intermittent pain requiring morphine. Patient endorses prior hx of possible tia with transient right sided weakness. no h/o chf. not on insulin for diabetes has to walk up multiple flights of stairs in a row daily for work. States he is able to do so without limitations or anginal sx's. deneis cp, sob, orthopnea, palps, dizziness, le edema, recent transient neurologic symptoms. denies fever or chills or sweats. He denies n/v, constipation or diarrhea, rashes, cough, congestion, visual disturbances. pmhx/pshx: per hpi social hx; Never smoked fam hx: no premature cad. rosl: per hpi Ambulatory Orders Amlodipine Besylate [Norvasc -] 5 mg PO DAILY 10/18/17 Carvedilol [Coreg -] 25 mg PO BID 10/18/17 Clopidogrel Bisulfate [Plavix] 75 mg PO DAILY 10/18/17 Glyburide [Diabeta -] 2 mg PO DAILY 10/18/17 Losartan/Hydrochlorothiazide [Losartan-Hctz 100-12.5 mg Tab] 1 each PO DAILY Metformin HCl [Glucophage] 1,000 mg PO BID 10/18/17 Pravastatin Sodium 20 mg PO HS 10/18/17 Current Medications Acetaminophen (Tylenol -) 650 mg PO Q4H PRN PRN Reason: PAIN LEVEL 1-5 Last Admin: 10/18/17 14:05 Dose: 650 mg Allopurinol (Zyloprim -) 100 mg PO DAILY [facility] Last Admin: 10/19/17 11:41 Dose: Not Given Amlodipine Besylate (Norvasc -) 5 mg PO DAILY [facility] Last Admin: 10/19/17 09:30 Dose: 5 mg Aspirin (Ecotrin -) 81 mg PO DAILY [facility] Atorvastatin Calcium (Lipitor -) 10 mg PO HS [facility] Last Admin: 10/18/17 21:29 Dose: 10 mg Carvedilol (Coreg -) 25 mg PO BID [facility] Last Admin: 10/19/17 09:30 Dose: 25 mg Insulin Aspart (Novolog Vial Sliding Scale -) 1 vial SQ ACHS MARC PRN Reason: Protocol Last Admin: 10/19/17 11:40 Dose: Not Given Losartan Potassium (Cozaar -) 100 mg PO DAILY [facility] Last Admin: 10/19/17 09:31 Dose: 100 mg Morphine Sulfate (Morphine Injection -) 1 mg IVPUSH Q4H PRN PRN Reason: PAIN LEVEL 6-10 Vital Signs - 24 hr 10/18/17 10/18/17 10/18/17 18:01 20:47 22:00 Temperature 98 F 98.4 F Pulse Rate 66 62 Respiratory 20 18 Rate Blood Pressure 161/94 144/88 O2 Sat by Pulse 97 Oximetry (%) 10/19/17 10/19/17 10/19/17 05:53 09:00 14:00 Temperature 99.0 F 98.7 F 98.1 F Pulse Rate 72 70 Respiratory 18 18 Rate Blood Pressure 146/81 143/70 O2 Sat by Pulse Oximetry (%) Intake & Output 10/17/17 10/18/17 10/19/17 10/20/17 07:59 07:59 07:59 07:59 Intake Total 1800 200 Output Total 100 Balance 1700 200 Weight 246 lb 7 oz nad, calm jvd flat, neck supple ctab, nl effort rrr nl s1, s2 no mrg + bs soft nt nd ext without e/c/c + dp/pt, no carotid bruits aaox3 no jaundice, diaphoresis. CBC, BMP 10/19/17 07:04 10/19/17 07:05 ekg: sr with prolonged av delay (376 ms) rbbb, lad, anterior q waves cxr: wnl 67 year old male with history of hypertension, hl, CAD s/p stent 2013, niddm, sarah on cpap, kidney stones s/p lithotripsy, remote h/o TIA 10 yrs ago ( transient right sided weakness) who p/w right flank pain found to have kidney stones requiring intervention. Pre-op clearance - Based on rcri and functional status, patient with intermediate estimated risk of kellie-operative cv events. patient is asx and does not require further testing prior to intervention. patient has remote pci, no compelling indication to con't dapt from cv perspective. However, would recommend continuation of asa kellie-operatively to reduce kellie-operative CV risk at discretion of urology. Patient with underying conduction abnormalities, would recommend that anesthesia avoid the use of anesthetics which increase vagal tone when possible, and close HR monitoring. cad s/p stent - resume asa if possible, as mentioned above. - con't statin, bb, acei - no anginal sx's. htn - initially slightly elevated. currently trending down. monitor for need to uptitrate regimen prior tia - con't ASA kellie-operatively. unclear if on dapt for this indication. defer to outpatient md's. sarah - con't cpap
--- NOTE | 2017-10-19 16:33 | EKG ---
Test Reason : Blood Pressure : / mmHG Vent. Rate : 073 BPM Atrial Rate : 073 BPM P-R Int : 376 ms QRS Dur : 138 ms QT Int : 404 ms P-R-T Axes : 002 -38 -21 degrees QTc Int : 445 ms SINUS RHYTHM WITH 1ST DEGREE A-V BLOCK LEFT AXIS DEVIATION RIGHT BUNDLE BRANCH BLOCK ABNORMAL ECG WHEN COMPARED WITH ECG OF 05-MAY-2011 12:24, RIGHT BUNDLE BRANCH BLOCK IS NOW PRESENT Confirmed by JAMI HANCOCK, JACI ([id number]) on 10/19/2017 4:33:10 PM Referred By: Confirmed By:JACI FARRELL MD
[2017-10-19] MEDS ORDERED: INSULIN (NOVOLOG) ASPART 100 UNITS/ML 10ML VIAL ONE ×2 (17:13→21:41)
[2017-10-19] MEDS: morphine SULFATE 4 MG/ML VIAL IVPUSH PRN (18:50)
[2017-10-19] MEDS ORDERED: morphine SULFATE 4 MG/ML VIAL IM ONE (19:00)
[2017-10-19] MEDS: ATORVASTATIN CA 10 MG TABLET (FP) PO SCH (21:42)
[2017-10-20] MEDS: morphine SULFATE 4 MG/ML VIAL IVPUSH PRN (01:47)
[2017-10-20] MEDS: INSULIN SLIDING SCALE (NOVOLOG) 1 VIAL SQ SCH ×4 (06:49→21:50)
[2017-10-20 07:59] LABS: BASO % 0.2 % (0-2.0); EOS % 1.1 % (0-4.5); HEMATOCRIT 36.8 % (35.4-49); HEMOGLOBIN 12.8 GM/dL (11.7-16.9); LYMPH % 21.9 % (8-40); MCH 30.5 pg (25.7-33.7); MCHC 34.8 g/dl (32.0-35.9); MEAN CELL VOLUME 87.6 fl (80-96); MEAN PLT VOLUME 7.3 fl (7.5-11.1); MONO % 11.5 % (3.8-10.2); NEUT % 65.3 % (42.8-82.8); PLATELET COUNT 169 K/MM3 (134-434); RDW 13.5 % (11.9-15.9); WHITE BLOOD COUNT 7.5 K/mm3 (4.0-10.0)
[2017-10-20 08:20] LABS: INR 1.09 (0.82-1.09); PROTHROMBIN TIME (PATIENT) 12.3 SEC (9.98-11.88)
[2017-10-20 08:23] LABS: ACTIVATED PTT 27.9 SECONDS (26.9-34.4)
[2017-10-20 08:28] LABS: CHLORIDE 104 mmol/L (98-107); POTASSIUM 3.7 mmol/L (3.5-5.1); SODIUM 140 mmol/L (136-145)
[2017-10-20 08:39] LABS: ANION GAP 13 (8-16); BLOOD UREA NITROGEN 17 mg/dL (7-18); CALCIUM 8.2 mg/dL (8.5-10.1); CO2 23 mmol/L (21-32); CREATININE 1.1 mg/dL (0.7-1.3); GLUCOSE,RANDOM 206 mg/dL (74-106)
[2017-10-20] MEDS ORDERED: ASPIRIN COATED 81 MG TABLET.EC PO SCH ×2 (10:00→22:00)
[2017-10-20] MEDS: amLODIPine BESYLATE 5 MG TABLET (FP) PO SCH (10:24)
[2017-10-20] MEDS: CEFTRIAXONE 2 GM/50 ML IVPB SCH (10:24)
[2017-10-20] MEDS: ALLOPURINOL 100 MG TABLET (FP) PO SCH (10:24)
[2017-10-20] MEDS: LOSARTAN POTASSIUM 50 MG TABLET (FP) PO SCH (10:24)
[2017-10-20] MEDS: CARVEDILOL 25 MG TABLET (FP) PO SCH ×2 (10:24→21:51)
--- NOTE | 2017-10-20 11:25 | PN ---
Physical Exam: SUBJECTIVE: Patient seen and examined OBJECTIVE: Vital Signs Period Temp Pulse Resp BP Sys/Monreal Pulse Ox Last 24 Hr 98.1 F-99.7 F 71-72 18-20 125-164/74-90 96 GENERAL: The patient is awake, alert, and fully oriented, in no acute distress. HEAD: Normal with no signs of trauma. EYES: PERRL, extraocular movements intact, sclera anicteric, conjunctiva clear. No ptosis. ENT: Ears normal, nares patent, oropharynx clear without exudates, moist mucous membranes. NECK: Trachea midline, full range of motion, supple. LUNGS: Breath sounds equal, clear to auscultation bilaterally, no wheezes, no crackles, no accessory muscle use. HEART: Regular rate and rhythm, S1, S2 without murmur, rub or gallop. ABDOMEN: Soft, nontender, nondistended, normoactive bowel sounds, no guarding, no rebound, no hepatosplenomegaly, no masses. EXTREMITIES: 2+ pulses, warm, well-perfused, no edema. NEUROLOGICAL: Cranial nerves II through XII grossly intact. Normal speech, gait not observed. PSYCH: Normal mood, normal affect. SKIN: Warm, dry, normal turgor, no rashes or lesions noted Laboratory Results - last 24 hr 10/19/17 10/19/17 10/19/17 07:05 11:21 17:00 WBC RBC Hgb Hct MCV MCH MCHC RDW Plt Count MPV Neutrophils % Lymphocytes % Monocytes % Eosinophils % Basophils % PT with INR INR PTT (Actin FS) Sodium Potassium Chloride Carbon Dioxide Anion Gap BUN Creatinine POC Glucometer 198 316 Random Glucose Uric Acid 5.4 Calcium 10/19/17 10/20/17 10/20/17 21:38 06:45 06:45 WBC 7.5 RBC 4.20 Hgb 12.8 Hct 36.8 MCV 87.6 MCH 30.5 MCHC 34.8 RDW 13.5 Plt Count 169 MPV 7.3 L Neutrophils % 65.3 Lymphocytes % 21.9 D Monocytes % 11.5 H Eosinophils % 1.1 D Basophils % 0.2 PT with INR 12.30 H INR 1.09 PTT (Actin FS) 27.9 Sodium Potassium Chloride Carbon Dioxide Anion Gap BUN Creatinine POC Glucometer 217 Random Glucose Uric Acid Calcium 10/20/17 10/20/17 06:45 06:48 WBC RBC Hgb Hct MCV MCH MCHC RDW Plt Count MPV Neutrophils % Lymphocytes % Monocytes % Eosinophils % Basophils % PT with INR INR PTT (Actin FS) Sodium 140 Potassium 3.7 Chloride 104 Carbon Dioxide 23 Anion Gap 13 BUN 17 D Creatinine 1.1 POC Glucometer 209 Random Glucose 206 H Uric Acid Calcium 8.2 L Active Medications Generic Name Dose Route Start Last Admin Trade Name Freq PRN Reason Stop Dose Admin Acetaminophen 650 mg 10/18/17 12:08 10/18/17 14:05 Tylenol - PO 650 mg Q4H PRN Administration PAIN LEVEL 1-5 Allopurinol 100 mg 10/19/17 10:00 10/20/17 10:24 Zyloprim - PO 100 mg DAILY MARC Administration Amlodipine Besylate 5 mg 10/19/17 10:00 10/20/17 10:24 Norvasc - PO 5 mg DAILY MARC Administration Aspirin 81 mg 10/20/17 22:00 Ecotrin - PO DAILY MARC Atorvastatin Calcium 10 mg 10/18/17 22:00 10/19/17 21:42 Lipitor - PO 10 mg HS MARC Administration Carvedilol 25 mg 10/18/17 22:00 10/20/17 10:24 Coreg - PO 25 mg BID MARC Administration Insulin Aspart 1 vial 10/18/17 16:30 10/20/17 06:49 Novolog Vial Sliding Scale - SQ Not Given ACHS [facility] Protocol Losartan Potassium 100 mg 10/19/17 10:00 10/20/17 10:24 Cozaar - PO 100 mg DAILY MARC Administration Morphine Sulfate 2 mg 10/19/17 18:03 10/20/17 01:47 Morphine Sulfate IVPUSH 2 mg Q4H PRN Administration PAIN LEVEL 6-10 ASSESSMENT/PLAN: Visit type - Emergency Visit Emergency Visit: Yes ED Registration Date: 10/18/17 Care time: The patient presented to the Emergency Department on the above date and was hospitalized for further evaluation of their emergent condition. - New Patient This patient is new to me today: No - Critical Care Critical Care patient: No
[2017-10-20] MEDS ORDERED: PROPOFOL 20 ML ONE (15:59)
[2017-10-20] MEDS ORDERED: ceFAZolin SODIUM 1 GM VIAL ONE (16:12)
[2017-10-20] MEDS ORDERED: DEXAMETHASONE SOD PHOSPHATE 4 MG/1 ML VIAL ONE (16:16)
[2017-10-20] MEDS ORDERED: GLYCOPYRROLATE 0.2 MG/1 ML VIAL ONE (16:26)
[2017-10-20] MEDS ORDERED: KETOROLAC TROMETHAMINE 30 MG/1 ML VIAL ONE (16:30)
[2017-10-20] MEDS ORDERED: ceFAZolin SODIUM 1 GM VIAL IVPB ONE (16:33)
--- NOTE | 2017-10-20 16:53 | OP ---
Operative Note - Note: Operative Date: 10/20/17 Pre-Operative Diagnosis: RT. HYDRO. RT. URETERAL STONE Operation: CYSTO,RT. RETRO, RT URETEROSCOPY,STONE MANIPULATION AND JJ STENT INSERTION Findings: RT. HYDRO AND RT. URETERAL STONE Post-Operative Diagnosis: Same as Pre-op Surgeon: Franki Lamb Anesthesia: General Estimated Blood Loss (mls): 0 Drains & Tubes with Location: 24CM 6F JJ STENT Drains, Volume Out (mls): 0 Blood Volume Replaced (mls): 0 Fluid Volume Replaced (mls): 0 Operative Report Dictated: Yes
[2017-10-20] MEDS ORDERED: PROMETHAZINE HCL 25 MG/1 ML VIAL IVPUSH PRN (16:55)
[2017-10-20] MEDS ORDERED: ONDANSETRON 4 MG/2 ML VIAL IVPUSH PRN (16:55)
[2017-10-20] MEDS ORDERED: metFORMIN HCL 500 MG TABLET (FP) PO SCH (17:00)
[2017-10-20] MEDS ORDERED: oxyCODONE HCL 5 MG TABLET PO PRN (17:13)
[2017-10-20] MEDS ORDERED: ACETAMINOPHEN 325 MG TABLET (FP) PO PRN (17:15)
[2017-10-20] MEDS ORDERED: TAMSULOSIN HCL 0.4 MG CAP.ER.24H (FP) PO ONE (17:15)
--- NOTE | 2017-10-20 17:20 | PN ---
<Nomi Lovell - Last Filed: 10/20/17 17:19> Physical Exam: SUBJECTIVE: Patient seen and examined No acute events overnight. Patient's pain is intermittent. Patient denies fever , chills, chest pain, sob, dysuria, heamturia Patient scheduled for OR today at 2. OBJECTIVE: Vital Signs Period Temp Pulse Resp BP Sys/Monreal Pulse Ox Last 24 Hr 98.6 F-99.7 F 71-72 18-20 125-164/74-90 96 GENERAL: Patient is A&Ox3, in NAD HEAD: Normal with no signs of trauma. EYES: Pupils equal, round and reactive to light, Extraocular movements intact, sclera anicteric, conjunctiva clear. No lid lag. EARS, NOSE, THROAT: Moist mucous membranes. NECK: supple without JVD LUNGS: Breath sounds equal, clear to auscultation bilaterally. No wheezes, crackles, rales heard HEART: Regular rate and rhythm, normal S1 and S2, No murmurs, rubs, or gallops ABDOMEN: obese, Soft, nontender, no distention, normoactive bowel sounds, no guarding, no rebound, no masses. MUSCULOSKELETAL: No CVA tenderness. UPPER EXTREMITIES: 2+ pulses, warm, well-perfused. No cyanosis. No clubbing. No peripheral edema. LOWER EXTREMITIES: 2+ pulses, warm, well-perfused. No calf tenderness. No peripheral edema. NEUROLOGICAL: Cranial nerves II-XII grossly intact. Normal speech. PSYCHIATRIC: Cooperative. Good eye contact. Appropriate mood and affect. SKIN: Warm, dry Laboratory Results - last 24 hr 10/19/17 10/20/17 10/20/17 21:38 06:45 06:45 WBC 7.5 RBC 4.20 Hgb 12.8 Hct 36.8 MCV 87.6 MCH 30.5 MCHC 34.8 RDW 13.5 Plt Count 169 MPV 7.3 L Neutrophils % 65.3 Lymphocytes % 21.9 D Monocytes % 11.5 H Eosinophils % 1.1 D Basophils % 0.2 PT with INR 12.30 H INR 1.09 PTT (Actin FS) 27.9 Sodium Potassium Chloride Carbon Dioxide Anion Gap BUN Creatinine POC Glucometer 217 Random Glucose Calcium 10/20/17 10/20/17 10/20/17 06:45 06:48 11:55 WBC RBC Hgb Hct MCV MCH MCHC RDW Plt Count MPV Neutrophils % Lymphocytes % Monocytes % Eosinophils % Basophils % PT with INR INR PTT (Actin FS) Sodium 140 Potassium 3.7 Chloride 104 Carbon Dioxide 23 Anion Gap 13 BUN 17 D Creatinine 1.1 POC Glucometer 209 221 Random Glucose 206 H Calcium 8.2 L Active Medications Generic Name Dose Route Start Last Admin Trade Name Freq PRN Reason Stop Dose Admin Acetaminophen 650 mg 10/18/17 12:08 10/18/17 14:05 Tylenol - PO 650 mg Q4H PRN Administration PAIN LEVEL 1-5 Acetaminophen 325 mg 10/20/17 17:15 Tylenol - PO Q4H PRN PAIN LEVEL 6-10 Allopurinol 100 mg 10/19/17 10:00 10/20/17 10:24 Zyloprim - PO 100 mg DAILY [facility] Administration Amlodipine Besylate 5 mg 10/19/17 10:00 10/20/17 10:24 Norvasc - PO 5 mg DAILY [facility] Administration Aspirin 81 mg 10/20/17 22:00 Ecotrin - PO DAILY [facility] Atorvastatin Calcium 10 mg 10/18/17 22:00 10/19/17 21:42 Lipitor - PO 10 mg HS [facility] Administration Carvedilol 25 mg 10/18/17 22:00 10/20/17 10:24 Coreg - PO 25 mg BID [facility] Administration Clopidogrel Bisulfate 75 mg 10/21/17 10:00 Plavix - PO DAILY [facility] Fentanyl 50 mcg 10/20/17 16:55 Sublimaze Injection - IVPUSH [id number] PRN PAIN-PACU ORDER X 4 DOSES ONLY Glyburide 2 mg 10/21/17 07:00 Diabeta - PO DAILY@0700 [facility] Hydrochlorothiazide 12.5 mg 10/21/17 10:00 Hctz - PO DAILY [facility] Lactated Ringer's 1,000 mls @ 125 mls/hr 10/20/17 17:00 Lactated Ringers Solution IV ASDIR [facility] Insulin Aspart 1 vial 10/18/17 16:30 10/20/17 11:59 Novolog Vial Sliding Scale - SQ Not Given ACHS [facility] Protocol Losartan Potassium 100 mg 10/19/17 10:00 10/20/17 10:24 Cozaar - PO 100 mg DAILY [facility] Administration Metformin HCl 1,000 mg 10/20/17 17:00 Glucophage - PO BIDI MARC Morphine Sulfate 2 mg 10/19/17 18:03 10/20/17 01:47 Morphine Sulfate IVPUSH 2 mg Q4H PRN Administration PAIN LEVEL 6-10 Ondansetron HCl 4 mg 10/20/17 16:55 Zofran Injection IVPUSH Q6H PRN NAUSEA AND/OR VOMITING Oxycodone HCl 5 mg 10/20/17 17:13 Roxicodone - PO Q4H PRN PAIN LEVEL 6-10 Promethazine HCl 12.5 mg 10/20/17 16:55 Phenergan Injection - IVPUSH Q6H PRN NAUSEA-FOR RESCUE AFTER 15 MIN ASSESSMENT/PLAN: 67 year old M with pmh of nephrolithasis s/p lithotripsy 8 years ago, htn, dm, and cad s/p cath 4 years ago presented with right flank pain x weeks and found to have [facility] nephrolithiasis #Right nephrolithiasis at [facility], mild hydronephrosis -Urology on board, Dr. Lamb -Per Dr. Lamb, procedure today @ 2 -Pain control with tylenol 650 q4h prn and morphine 1 mg q 4h prn -NPO after midnight -Ceftriaxone 2 g daily -Pre-op clearance with 12 lead EKG -Cardiology consulted, Dr. Levin #YOHANNES, resolving -Hold IVF -Avoid nephrotoxic medications -Monitor cr, urine output #DM, type 2 -Hold home medications -bgm achs -iss achs #HTN/CAD s/p cath -Hold Plavix and HCTZ for procedure -Continue coreg, norvasc, losartan -Continue aspirin after procedure #FEN/GI -No IVF -monitor bmp -Sodium/Diabetic diet, npo after midnight for procedure #PPx -Scds Dispo: Can be d/c after procedure once stable Visit type - Emergency Visit Emergency Visit: Yes ED Registration Date: 10/18/17 Care time: The patient presented to the Emergency Department on the above date and was hospitalized for further evaluation of their emergent condition. - New Patient This patient is new to me today: No - Critical Care Critical Care patient: No <Romario Abad - Last Filed: 10/20/17 19:10> Physical Exam: Patient is back from the operating room s/p stent placement, ordered diet, will continue IV antibiotic Rocephin. discussed with , possible discharge in am on oral antibiotic, and follow with him in the office for stent removal.
[2017-10-20] MEDS ORDERED: INSULIN (NOVOLOG) ASPART 100 UNITS/ML 10ML VIAL ONE ×2 (18:04→21:44)
--- NOTE | 2017-10-20 18:59 | OP ---
DATE OF OPERATION: 10/20/2017 PREOPERATIVE DIAGNOSIS: Right hydronephrosis, right ureteral stone. POSTOPERATIVE DIAGNOSIS: Right hydronephrosis, right ureteral stone. Benign prostatic hypertrophy. OPERATIVE PROCEDURE: Cystourethroscopy, right retrograde pyelogram, right ureteroscopy with stone manipulation, placement of a right JJ stent. ANESTHESIA: General. DESCRIPTION OF PROCEDURE: Under above stated anesthesia, patient is prepped and draped in the usual sterile manner. He is placed in the dorsal lithotomy position. A 30-degree continuous flow scope introduced under direct vision revealed a normal anterior urethra. Prostatic urethra revealed trilobar hypertrophy of the prostate with lateral lobe . The bladder was entered and 200 mL of urine was drained. This was sent for C and S. Inspection of the bladder revealed a grade 2 trabeculation throughout. No lesions were noted. No calculi were seen. Ureteral orifices were within normal limits with reflux of clear urine from the left, none was seen from the right. A Flextip catheter was placed in the right ureteral orifice, and 5 mL of contrast was injected. This revealed a normal ureter to the level of the ureteropelvic junction with proximal hydronephrosis due to a filling defect at the UPJ; therefore, a glidewire was passed up the right renal unit. The cystoscope was removed. The semirigid ureteroscope was inserted. Ureteroscopy was then performed per usual fashion. A lower ureter was within normal limits. The level of the ureteropelvic junction was approached and no stone was seen. It appeared the stone has fallen into one of the minor calices. Inspection of the renal pelvis revealed no stone. Therefore the ureteral scope was removed. The 24 cm 6 Malay JJ stent was left in place. X-rays confirmed good position of the stent. The bladder was emptied. The scope was removed. The patient tolerated the procedure well. He returned to the recovery room in good condition. Amanda [id number]
--- NOTE | 2017-10-20 19:11 | PN ---
Progress Note (short form) - Note Progress Note: CC: pre-op clearance S: had surgery today, no complications. no cp, palps, dizziness, sob. Current Medications Acetaminophen (Tylenol -) 650 mg PO Q4H PRN PRN Reason: PAIN LEVEL 1-5 Last Admin: 10/18/17 14:05 Dose: 650 mg Acetaminophen (Tylenol -) 325 mg PO Q4H PRN PRN Reason: PAIN LEVEL 6-10 Allopurinol (Zyloprim -) 100 mg PO DAILY [facility] Last Admin: 10/20/17 10:24 Dose: 100 mg Amlodipine Besylate (Norvasc -) 5 mg PO DAILY [facility] Last Admin: 10/20/17 10:24 Dose: 5 mg Aspirin (Ecotrin -) 81 mg PO DAILY [facility] Atorvastatin Calcium (Lipitor -) 10 mg PO HS [facility] Last Admin: 10/19/17 21:42 Dose: 10 mg Carvedilol (Coreg -) 25 mg PO BID [facility] Last Admin: 10/20/17 10:24 Dose: 25 mg Clopidogrel Bisulfate (Plavix -) 75 mg PO DAILY [facility] Fentanyl (Sublimaze Injection -) 50 mcg IVPUSH [id number] PRN PRN Reason: PAIN-PACU ORDER X 4 DOSES ONLY Lactated Ringer's (Lactated Ringers Solution) 1,000 mls @ 125 mls/hr IV ASDIR [facility] Insulin Aspart (Novolog Vial Sliding Scale -) 1 vial SQ ACHS [facility] PRN Reason: Protocol Last Admin: 10/20/17 18:24 Dose: 4 units Losartan Potassium (Cozaar -) 100 mg PO DAILY [facility] Last Admin: 10/20/17 10:24 Dose: 100 mg Morphine Sulfate (Morphine Sulfate) 2 mg IVPUSH Q4H PRN PRN Reason: PAIN LEVEL 6-10 Last Admin: 10/20/17 01:47 Dose: 2 mg Ondansetron HCl (Zofran Injection) 4 mg IVPUSH Q6H PRN PRN Reason: NAUSEA AND/OR VOMITING Oxycodone HCl (Roxicodone -) 5 mg PO Q4H PRN PRN Reason: PAIN LEVEL 6-10 Promethazine HCl (Phenergan Injection -) 12.5 mg IVPUSH Q6H PRN PRN Reason: NAUSEA-FOR RESCUE AFTER 15 MIN Vital Signs - 24 hr 03/10/20/17 10/20/17 22:00 06:00 11:03 Temperature 99.7 F H 99.1 F 98.6 F Pulse Rate 71 71 72 Respiratory 20 18 18 Rate Blood Pressure 144/77 125/74 164/90 O2 Sat by Pulse 96 Oximetry (%) 10/20/17 10/20/17 10/20/17 14:00 16:52 17:05 Temperature 98.9 F 98.8 F Pulse Rate 72 76 Respiratory 20 18 Rate Blood Pressure 149/82 142/90 O2 Sat by Pulse 95 95 Oximetry (%) 10/20/17 10/20/17 10/20/17 17:20 17:32 18:00 Temperature 98.2 F 98 F Pulse Rate 82 70 69 Respiratory 18 18 18 Rate Blood Pressure 128/82 143/75 150/85 O2 Sat by Pulse 94 L Oximetry (%) Intake & Output 10/18/17 10/19/17 10/20/17 10/21/17 07:59 07:59 07:59 07:59 Intake Total 7107 888 0333 Output Total 100 400 Balance 6844 878 0099 Weight 246 lb 7 oz 246 lb 9 oz nad, calm jvd flat, neck supple ctab, nl effort rrr nl s1, s2 no mrg + bs soft nt nd ext without e/c/c + dp/pt, no carotid bruits aaox3 no jaundice, diaphoresis. CBC, BMP 10/20/17 06:45 10/20/17 06:45 ekg: sr with prolonged av delay (376 ms) rbbb, lad, anterior q waves cxr: wnl 67 year old male with history of hypertension, hl, CAD s/p stent 2013, niddm, sarah on cpap, kidney stones s/p lithotripsy, remote h/o TIA 10 yrs ago ( transient right sided weakness) who p/w right flank pain found to have kidney stones requiring intervention. Pre-op clearance - Based on rcri and functional status, patient with intermediate estimated risk of kellie-operative cv events. patient is asx and does not require further testing prior to intervention. patient has remote pci, no compelling indication to con't dapt from cv perspective. However, would recommend continuation of asa kellei-operatively to reduce kellie-operative CV risk at discretion of urology. Patient with underying conduction abnormalities, would recommend that anesthesia avoid the use of anesthetics which increase vagal tone when possible, and close HR monitoring. - s/p CYSTO,RT. RETRO, RT URETEROSCOPY,STONE MANIPULATION AND JJ STENT INSERTION on 10/20, no complications. hr/bp controlled. cad s/p stent - dapt resumed - con't statin, bb, acei - no anginal sx's. htn - overall controlled on home regimen. prior tia - DaPT has been resumed. unclear if on dapt for this indication. defer to outpatient md's. sarah - con't cpap stable from cv perspective. Recommended follow up with his outpatient correspondent.
[2017-10-20] MEDS: ATORVASTATIN CA 10 MG TABLET (FP) PO SCH (21:51)
[2017-10-21] MEDS: LACTATED RINGERS SOLUTION 1,000 ML IV SCH ×3 (00:02→10:09)
[2017-10-21] MEDS: INSULIN SLIDING SCALE (NOVOLOG) 1 VIAL SQ SCH ×2 (06:38→11:54)
[2017-10-21] MEDS ORDERED: glyBURIDE 2.5 MG TABLET (FP) PO SCH ×2 (07:00)
--- NOTE | 2017-10-21 08:43 | PN ---
Progress Note (short form) - Note Progress Note: Post op day#1.S/P Cystoscopy with right ureteroscopy and stent placement under Ga uneventful.Patient stable.No any anesthesia related problem.Patient Dc from the anesthesia care.
--- NOTE | 2017-10-21 09:55 | DS ---
Physical Exam: SUBJECTIVE: Patient seen and examined OBJECTIVE: Patient is comfortable with no acute distress, ready to go home. PHYSICAL EXAM GENERAL: The patient is awake, alert, and fully oriented, in no acute distress. HEAD: Normal with no signs of trauma. EYES: PERRL, extraocular movements intact, sclera anicteric, conjunctiva clear. ENT: Ears normal, oropharynx clear without exudates, moist mucous membranes. NECK: Trachea midline, full range of motion, supple. LUNGS: Breath sounds equal, clear to auscultation bilaterally, no wheezes, no crackles, no accessory muscle use. HEART: Regular rate and rhythm, S1, S2 without murmur, rub or gallop. ABDOMEN: Soft, nontender, nondistended, normoactive bowel sounds, no guarding, no rebound, no hepatosplenomegaly, no masses. EXTREMITIES: 2+ pulses, warm, well-perfused, no edema. NEUROLOGICAL: Cranial nerves II through XII grossly intact. Normal speech, gait not observed. PSYCH: Normal mood, normal affect. SKIN: Warm, dry, normal turgor, no rashes or lesions noted. LABS Laboratory Results - last 24 hr 10/20/17 10/20/17 10/20/17 11:55 17:59 21:47 POC Glucometer 221 281 323 10/21/17 06:15 POC Glucometer 265 CBCD WBC 7.5 K/mm3 (4.0-10.0) 10/20/17 06:45 RBC 4.20 M/mm3 (4.00-5.60) 10/20/17 06:45 Hgb 12.8 GM/dL (11.7-16.9) 10/20/17 06:45 Hct 36.8 % (35.4-49) 10/20/17 06:45 MCV 87.6 fl (80-96) 10/20/17 06:45 MCHC 34.8 g/dl (32.0-35.9) 10/20/17 06:45 RDW 13.5 % (11.9-15.9) 10/20/17 06:45 Plt Count 169 K/MM3 (134-434) 10/20/17 06:45 MPV 7.3 fl (7.5-11.1) L 10/20/17 06:45 CMP Sodium 140 mmol/L (136-145) 10/20/17 06:45 Potassium 3.7 mmol/L (3.5-5.1) 10/20/17 06:45 Chloride 104 mmol/L (98-107) 10/20/17 06:45 Carbon Dioxide 23 mmol/L (21-32) 10/20/17 06:45 Anion Gap 13 (8-16) 10/20/17 06:45 BUN 17 mg/dL (7-18) D 10/20/17 06:45 Creatinine 1.1 mg/dL (0.7-1.3) 10/20/17 06:45 Creat Clearance w eGFR 46.82 (>60) 10/18/17 09:46 Random Glucose 206 mg/dL (74-106) H 10/20/17 06:45 Calcium 8.2 mg/dL (8.5-10.1) L 10/20/17 06:45 Total Bilirubin 1.3 mg/dL (0.2-1.0) H 10/18/17 09:46 AST 16 U/L (15-37) 10/18/17 09:46 ALT 16 U/L (12-78) 10/18/17 09:46 Alkaline Phosphatase 57 U/L (45-117) 10/18/17 09:46 Total Protein 6.4 g/dl (6.4-8.2) 10/18/17 09:46 Albumin 3.4 g/dl (3.4-5.0) 10/18/17 09:46 Current Medications Generic Name Dose Route Start Last Admin Trade Name Freq PRN Reason Stop Dose Admin Acetaminophen 650 mg 10/18/17 12:08 10/18/17 14:05 Tylenol - PO 650 mg Q4H PRN Administration PAIN LEVEL 1-5 Acetaminophen 325 mg 10/20/17 17:15 Tylenol - PO Q4H PRN PAIN LEVEL 6-10 Allopurinol 100 mg 10/19/17 10:00 10/20/17 10:24 Zyloprim - PO 100 mg DAILY [facility] Administration Amlodipine Besylate 5 mg 10/19/17 10:00 10/20/17 10:24 Norvasc - PO 5 mg DAILY [facility] Administration Aspirin 81 mg 10/20/17 22:00 Ecotrin - PO DAILY [facility] Atorvastatin Calcium 10 mg 10/18/17 22:00 10/20/17 21:51 Lipitor - PO 10 mg HS [facility] Administration Carvedilol 25 mg 10/18/17 22:00 10/20/17 21:51 Coreg - PO 25 mg BID [facility] Administration Clopidogrel Bisulfate 75 mg 10/21/17 10:00 Plavix - PO DAILY [facility] Fentanyl 50 mcg 10/20/17 16:55 Sublimaze Injection - IVPUSH [id number] PRN PAIN-PACU ORDER X 4 DOSES ONLY Lactated Ringer's 1,000 mls @ 125 mls/hr 10/20/17 17:00 10/21/17 00:02 Lactated Ringers Solution IV 125 mls/hr ASDIR [facility] Administration Insulin Aspart 1 vial 10/18/17 16:30 10/21/17 06:38 Novolog Vial Sliding Scale - SQ 4 units ACHS [facility] Administration Protocol Losartan Potassium 100 mg 10/19/17 10:00 10/20/17 10:24 Cozaar - PO 100 mg DAILY [facility] Administration Morphine Sulfate 2 mg 10/19/17 18:03 10/20/17 01:47 Morphine Sulfate IVPUSH 2 mg Q4H PRN Administration PAIN LEVEL 6-10 Ondansetron HCl 4 mg 10/20/17 16:55 Zofran Injection IVPUSH Q6H PRN NAUSEA AND/OR VOMITING Oxycodone HCl 5 mg 10/20/17 17:13 10/20/17 21:53 Roxicodone - PO 5 mg Q4H PRN Administration PAIN LEVEL 6-10 Promethazine HCl 12.5 mg 10/20/17 16:55 Phenergan Injection - IVPUSH Q6H PRN NAUSEA-FOR RESCUE AFTER 15 MIN Home Medications Medication Instructions Recorded Amlodipine Besylate [Norvasc -] 5 mg PO DAILY 10/18/17 Carvedilol [Coreg -] 25 mg PO BID 10/18/17 Clopidogrel Bisulfate [Plavix] 75 mg PO DAILY 10/18/17 Glyburide [Micronase -] 2 mg PO DAILY 10/18/17 Losartan/Hydrochlorothiazide 1 each PO DAILY 10/18/17 [Losartan-Hctz 100-12.5 mg Tab] Metformin HCl [Glucophage] 1,000 mg PO BID 10/18/17 Pravastatin Sodium 20 mg PO HS 10/18/17 Allopurinol [Zyloprim -] 100 mg PO DAILY #30 tablet 10/20/17 Aspirin Coated [Ecotrin -] 81 mg PO DAILY tablet.ec 10/20/17 Cefuroxime Axetil [Ceftin -] 500 mg PO Q12H #14 tablet 10/20/17 HOSPITAL COURSE: Date of Admission:10/18/17 Date of Discharge: 10/21/17 Patient is a 67 year old M with pmh of nephrolithasis s/p lithotripsy 8 years ago, htn, dm, and cad s/p cath 4 years ago presented with right flank pain x weeks and found to have right UPJ nephrolithiasis #Right nephrolithiasis at UPJ, mild hydronephrosis s/p stent by on , patient will follow with 's office within a week period for removal of the stent. Patient will be discharged on Ceftin for 7 days total. s/ p Ceftriaxone IV. # UA positive for Uric acid crystals will give him allopurinol 100mg po daily, explained. Also was suggested not to take his HCTZ with Losartan , prescribed Losartan by itself. #YOHANNES, resolved s/p IVF #DM, type 2 continue his home meds #HTN/CAD s/p cath continue Plavix and Aspirin, coreg, norvasc, losartan Minutes to complete discharge: 40 Discharge Summary Reason For Visit: URINARY TRACT OBSTRUCTION DUE TO KIDNEY STONE Current Active Problems YOHANNES (acute kidney injury) (Acute) Urinary tract obstruction by kidney stone (Acute) CAD (coronary artery disease) (Chronic) HTN (hypertension) (Chronic) Condition: Stable - Instructions Diet, Activity, Other Instructions: You were in the hospital for a kidney stone. Please follow up with your primary care provider, Dr. Martin Please follow up with your urologist in 1 week for stent removal. Please continue your home medications. Do not take your Hydrochlorthiazide only Losartan will give you a prescription. Continue taking Allopurinol 100 mg daily. Take Ceftin 500 mg twice a day for 7 days *If you have chest pain, shortness of breath, or any new symptoms please come back to the hospital immediately. Referrals: Franki Lamb MD [Staff Physician] - 1 Week (for stent removal ) Disposition: HOME - Home Medications Comprehensive Discharge Medication List: Ambulatory Orders Amlodipine Besylate [Norvasc -] 5 mg PO DAILY 10/18/17 Carvedilol [Coreg -] 25 mg PO BID 10/18/17 Clopidogrel Bisulfate [Plavix] 75 mg PO DAILY 10/18/17 Glyburide [Micronase -] 2 mg PO DAILY 10/18/17 Losartan/Hydrochlorothiazide [Losartan-Hctz 100-12.5 mg Tab] 1 each PO DAILY Metformin HCl [Glucophage] 1,000 mg PO BID 10/18/17 Pravastatin Sodium 20 mg PO HS 10/18/17 Allopurinol [Zyloprim -] 100 mg PO DAILY #30 tablet 10/20/17 Aspirin Coated [Ecotrin -] 81 mg PO DAILY tablet.ec 10/20/17 Cefuroxime Axetil [Ceftin -] 500 mg PO Q12H #14 tablet 10/20/17 This patient is new to me today: No Emergency Visit: Yes ED Registration Date: 10/18/17 Care time: The patient presented to the Emergency Department on the above date and was hospitalized for further evaluation of their emergent condition. Critical Care patient: No - Discharge Referral Referred to [facility] No
[2017-10-21] MEDS ORDERED: HYDROCHLOROTHIAZIDE 12.5 MG CAPSULE (FP) PO SCH (10:00)
[2017-10-21] MEDS ORDERED: CLOPIDOGREL BISULFATE 75 MG TABLET (FP) PO SCH (10:00)
[2017-10-21] MEDS ORDERED: PATIENT'S OWN MEDICATION (NON-FORMULARY) (Losartan/Hydrochlorothiazide [Losartan-Hctz 100- PO SCH (10:00)
[2017-10-21] MEDS: LOSARTAN POTASSIUM 50 MG TABLET (FP) PO SCH (10:05)
[2017-10-21] MEDS: amLODIPine BESYLATE 5 MG TABLET (FP) PO SCH (10:05)
[2017-10-21] MEDS: CARVEDILOL 25 MG TABLET (FP) PO SCH (10:05)
[2017-10-21] MEDS: ALLOPURINOL 100 MG TABLET (FP) PO SCH (10:05)
[2017-10-21] MEDS: CEFTRIAXONE 2 GM/50 ML IVPB SCH (10:06)
--- NOTE | 2017-10-21 11:32 | CONS ---
DATE OF CONSULTATION: 10/19/2017 HISTORY: The patient presents to the emergency room with a history of right renal colic acute in onset commencing in the right flank and radiating to the right lower quadrant and right groin. The pain is colicky and has increased in severity. The patient took Motrin without relief. He has had some nausea and 1 episode of vomiting in the emergency room. He denies any fever, chills, chest pain, shortness of breath. He does have a history of kidney stones in the past. He has undergone a left laser lithotripsy 8 years earlier and has been lost to follow up. The patient does have a history of high blood pressure as well as diabetes. A CAT scan in the emergency room revealed a 6-mm x 8-mm stone in the right upper ureter with hydroureteronephrosis proximal to that. The bladder also had a thickened wall. The patient denies any past travel. He denies any smoking, alcohol, or drugs. He underwent cardiac catheterization 4 years earlier. ALLERGIES: He denies any allergies. MEDICATIONS: He is on Norvasc, Coreg, Plavix, Diabeta, losartan, and metformin. He also takes a statin for dyslipidemia. LABORATORY DATA: In the emergency room, his white count was 9500, hemoglobin 13.7, hematocrit 38.5, platelets 179. His urine was positive for blood, negative for nitrates. Liver enzymes were normal. PHYSICAL EXAMINATION: General: A well-developed male in mild distress. Abdomen: He does have right CVA tenderness. Genitalia: Atraumatic. No hernias or hydroceles are elicited. Phallus is uncircumcised. Meatus is adequate. Prostate is 3+, smooth, benign, nontender. IMPRESSION: At present, right ureteral stone with hydronephrosis. PLAN: We will recommend hydration both IV and p.o. We will also recommend straining all urine. Repeat a renal ultrasound in the a.m. If there is no movement of spontaneous passage of stone, we will recommend a cystourethroscopy and a laser lithotripsy. We will follow with you. DEE DEE SAMUELS M.D. [id number]
[2017-10-21] MEDS ORDERED: INSULIN (NOVOLOG) ASPART 100 UNITS/ML 10ML VIAL ONE (11:53)
[2017-10-21 15:05] VITALS: BP 120/78; PULSE 72; TEMP 97.6
== END 2017-10-21 15:12 | disposition home or self-care (01) | DRG 669 ==
LOC: JER 08:58 → JERBED 11:53 → J6S 13:48 → OBSVTOIN 14:01
PROVIDERS: ADMIT Internal Medicine; ATTEND Internal Medicine
PROC: 0T9B8ZX Drainage of Bladder, Via Natural or Artificial Opening Endoscopic, Diagnostic (ICD-10-PCS; 2017-10-20)
PROC: BT1DYZZ Fluoroscopy of Right Kidney, Ureter and Bladder using Other Contrast (ICD-10-PCS; 2017-10-20)
PROC: 0T768DZ Dilation of Right Ureter with Intraluminal Device, Via Natural or Artificial Opening Endoscopic (ICD-10-PCS; principal; 2017-10-20 14:00)
DX: N13.2 Hydronephrosis with renal and ureteral calculous obstruction (principal); N17.9 Acute kidney failure, unspecified; I25.10 Atherosclerotic heart disease of native coronary artery without angina pectoris; Z79.84 Long term (current) use of oral hypoglycemic drugs; K76.0 Fatty (change of) liver, not elsewhere classified; G47.33 Obstructive sleep apnea (adult) (pediatric); Z86.73 Personal history of transient ischemic attack (TIA), and cerebral infarction without residual deficits; N40.0 Benign prostatic hyperplasia without lower urinary tract symptoms; E11.22 Type 2 diabetes mellitus with diabetic chronic kidney disease; I12.9 Hypertensive chronic kidney disease with stage 1 through stage 4 chronic kidney disease, or unspecified chronic kidney disease; N18.9 Chronic kidney disease, unspecified
CPT/HCPCS: 36415; 71045-TC-FY; 74176; 80048; 80053; 81003; 81015; 82962; 84550; 85025; 85610; 85730; 87086; 93005; 93010; 99283-25; G0378; J7030

== ENCOUNTER 2018-08-28 15:57 | Emergency (ER) | payer OTHER, MEDICARE ==
--- NOTE | 2018-08-28 16:10 | PDOC ---
Rapid Medical Evaluation Chief Complaint: Lightheaded Time Seen by Provider: 08/28/18 16:07 Medical Evaluation: Allergies Allergy/AdvReac Type Severity Reaction Status Date / Time No Known Allergies Allergy Verified 10/18/17 09:07 08/28/18 16:08 I have performed a brief in person evaluation of this patient. The patient's CC: "dizziness" HPI: Pt is a 68 YO male who states that he woke up this morning and was dizzy. Pt denies hitting his head. PE: Skin: Clear Heart: RRR Lungs: Clear MS. Moves all extremities without difficult. Neuro: Alert and oriented Psch: appropriate affect The patient will proceed to main ED for further evaluation. Discharge Disposition - Diagnosis Dizziness - Referrals - Patient Instructions - Post Discharge Activity
[2018-08-28 16:12] VITALS: BP 157/81; PULSE 64; TEMP 98.3; BMI 25.8
[2018-08-28 17:01] LABS: BASO % 0.4 % (0-2.0); EOS % 1.8 % (0-4.5); HEMATOCRIT 35.7 % (35.4-49); HEMOGLOBIN 12.4 GM/dL (11.7-16.9); LYMPH % 18.7 % (8-40); MCH 30.6 pg (25.7-33.7); MCHC 34.7 g/dl (32.0-35.9); MEAN CELL VOLUME 88.4 fl (80-96); MEAN PLT VOLUME 7.4 fl (7.5-11.1); MONO % 7.1 % (3.8-10.2); PLATELET COUNT 200 K/MM3 (134-434); RBC 4.03 M/mm3 (4.00-5.60); RDW 13.9 % (11.9-15.9); WHITE BLOOD COUNT 6.5 K/mm3 (4.0-10.0)
[2018-08-28 17:04] LABS: URINE APPEARANCE CLEAR; URINE BILIRUBIN NEGATIVE (<2.0 mg/dL); URINE COLOR LTYELLOW; URINE GLUCOSE (UA) 2+ (NEGATIVE); URINE KETONE NEGATIVE (NEGATIVE); URINE LEUK ESTERASE NEGATIVE (NEGATIVE); URINE NITRITE NEGATIVE (NEGATIVE); URINE PROTEIN 3+ (NEGATIVE); URINE UROBILINOGEN NEGATIVE mg/dL (0.2-1.0)
--- NOTE | 2018-08-28 17:06 | PDOC ---
History of Present Illness - General Chief Complaint: Lightheaded Stated Complaint: DIZZINESS Time Seen by Provider: 08/28/18 16:07 History Source: Patient Past History - Past Medical History Allergies/Adverse Reactions: Allergies Allergy/AdvReac Type Severity Reaction Status Date / Time No Known Allergies Allergy Verified 08/28/18 16:08 Home Medications: Ambulatory Orders Amlodipine Besylate [Norvasc -] 5 mg PO DAILY 10/18/17 Carvedilol [Coreg -] 25 mg PO BID 10/18/17 Clopidogrel Bisulfate [Plavix] 75 mg PO DAILY 10/18/17 Glyburide [Micronase -] 2 mg PO DAILY 10/18/17 Metformin HCl [Glucophage] 1,000 mg PO BID 10/18/17 Pravastatin Sodium 20 mg PO HS 10/18/17 Allopurinol [Zyloprim -] 100 mg PO DAILY #30 tablet 10/20/17 Aspirin Coated [Ecotrin -] 81 mg PO DAILY tablet.ec 10/20/17 Cefuroxime Axetil [Ceftin -] 500 mg PO Q12H #14 tablet 10/20/17 Losartan Potassium [Cozaar -] 100 mg PO DAILY #30 tablet 10/21/17 Meclizine HCl [Antivert -] 25 mg PO QID #20 tablet 08/28/18 Cardiac Disorders: Yes COPD: No Diabetes: Yes Disorders: (KIDNEY STONES.) HTN: Yes - Surgical History Cardiac Surgery: Yes (STENT: 2013) - Immunization History Immunization Up to Date: Yes - Suicide/Smoking/Psychosocial Hx Smoking History: Never smoked Hx Alcohol Use: No Drug/Substance Use Hx: No Substance Use Type: None Review of Systems - Review of Systems Constitutional: No: Chills, Fever Respiratory: No: Shortness of Breath Cardiac (ROS): No: Chest Pain ABD/GI: No: Nausea, Vomiting Neurological: Yes: Dizziness. No: Headache *Physical Exam - Vital Signs Last Vital Signs Temp Pulse Resp BP Pulse Ox 98.3 F 64 16 157/81 99 08/28/18 16:08 08/28/18 16:08 08/28/18 16:08 08/28/18 16:08 08/28/18 16:08 - Physical Exam General Appearance: Yes: Appropriately Dressed. No: Apparent Distress HEENT: positive: Normal Voice Neck: positive: Supple Respiratory/Chest: positive: Lungs Clear, Normal Breath Sounds. negative: Respiratory Distress Cardiovascular: positive: Regular Rate, S1, S2 Integumentary: positive: Dry, Warm Neurologic: positive: Fully Oriented, Alert, Normal Mood/Affect, Motor Strength 5/5, Finger to Nose. negative: Facial Droop, Confused, Disoriented (Floyd intact , no drift, no ataxia) Moderate Sedation - Procedure Monitoring Vital Signs: Procedure Monitoring Vital Signs Temperature 98.3 F 08/28/18 16:08 Pulse Rate 64 08/28/18 16:08 Respiratory Rate 16 08/28/18 16:08 Blood Pressure 157/81 08/28/18 16:08 O2 Sat by Pulse Oximetry (%) 99 08/28/18 16:08 ED Treatment Course - LABORATORY CBC & Chemistry Diagram: 08/28/18 16:38 08/28/18 16:38 Medical Decision Making - Medical Decision Making 08/28/18 17:04 68-year-old male, history of [id number] diabetes, hypertension, ?TIA remotely, on asa, here with dizziness. Patient states last night while "moving around in bed", developed sensation of the room spinning that resolved at some point and was able to go back to sleep. Woke up this morning in his usual state of health but about 1 PM today while at work symptoms reoccur while bending down. Symptoms since improved. No LOC, blurry vision, nausea, vomiting , focal weakness, chest pain or shortness of breath. No recent URI symptoms. No history of similar episode in the past See exam Vertigo Appears positional, low suspicion for CVA Sxs since improved No recent URI Stable and non-focal here -labs -CTH -meclizine -reassess 08/28/18 18:53 EKG unchanged. Labs and Head CT unremarkable. Patient improved with meclizine and asymptomatic at this time. Will dc with follow-up. Strict return precautions given to patient *DC/Admit/Observation/Transfer Diagnosis at time of Disposition: Vertigo - Discharge Dispostion Disposition: HOME Condition at time of disposition: Improved - Prescriptions Prescriptions: Meclizine HCl [Antivert -] 25 mg PO QID #20 tablet - Referrals Referrals: Javi Singh MD [Primary Care Provider] - Dawood Sanchez MD [Staff Physician] - - Patient Instructions Printed Discharge Instructions: Vertigo Additional Instructions: Your labs and head CT were normal here. Take meclizine as prescribed and follow up with Dr. Sanchez of neurology - Post Discharge Activity
[2018-08-28] MEDS ORDERED: MECLIZINE HCL 25 MG TABLET (FP) PO ONE (17:07)
[2018-08-28] MEDS ORDERED: MECLIZINE HCL 25 MG TABLET (FP) ONE (17:13)
[2018-08-28 17:16] LABS: INR 0.97 (0.83-1.09); PROTHROMBIN TIME (PATIENT) 11.4 SEC (9.7-13.0)
[2018-08-28 17:33] LABS: ALBUMIN 3.5 g/dl (3.4-5.0); ALK PHOS 52 U/L (45-117); ANION GAP 9 MMOL/L (8-16); BILIRUBIN,TOTAL 0.4 mg/dL (0.2-1); BLOOD UREA NITROGEN 28 mg/dL (7-18); CALCIUM 8.8 mg/dL (8.5-10.1); CHLORIDE 107 mmol/L (98-107); CO2 25 mmol/L (21-32); CREATININE 1.4 mg/dL (0.55-1.3); GLUCOSE,RANDOM 172 mg/dL (74-106); POTASSIUM 4.2 mmol/L (3.5-5.1); SGOT/AST 18 U/L (15-37); SGPT/ALT 24 U/L (13-61); SODIUM 141 mmol/L (136-145); TOT PROT 6.5 g/dl (6.4-8.2)
[2018-08-29 01:15] LABS: EPI CELLS RARE /HPF (FEW); URINE BACTERIA RARE /hpf (NONE SEEN); URINE MUCUS RARE
--- NOTE | 2018-08-29 13:19 | EKG ---
Test Reason : Blood Pressure : / mmHG Vent. Rate : 064 BPM Atrial Rate : 078 BPM P-R Int : 378 ms QRS Dur : 134 ms QT Int : 418 ms P-R-T Axes : 062 -35 -40 degrees QTc Int : 431 ms SINUS RHYTHM WITH 1ST DEGREE A-V BLOCK WITH FREQUENT PREMATURE VENTRICULAR COMPLEXES AND PREMATURE ATRIAL COMPLEXES LEFT AXIS DEVIATION RIGHT BUNDLE BRANCH BLOCK POSSIBLE ANTEROSEPTAL INFARCT , AGE UNDETERMINED ABNORMAL ECG WHEN COMPARED WITH ECG OF 19-OCT-2017 13:20, SIGNIFICANT CHANGES HAVE OCCURRED Confirmed by MAGY HANCOCK, KANE ([id number]) on 08/29/2018 1:19:07 PM Referred By: Confirmed By:KANE BHATTI MD
== END 2018-08-28 19:01 | disposition home or self-care (01) ==
LOC: JER 15:57
DX: R42 Dizziness and giddiness (principal); I25.10 Atherosclerotic heart disease of native coronary artery without angina pectoris; I10 Essential (primary) hypertension; Z95.5 Presence of coronary angioplasty implant and graft; E11.9 Type 2 diabetes mellitus without complications; Z79.84 Long term (current) use of oral hypoglycemic drugs
CPT/HCPCS: 36415; 70450-TC; 80053; 81003; 81015; 82550; 82553; 84484; 85025; 85610; 93005; 93010; 99282-25